=== PATIENT | male | born 1980 | race African-American/Black ===

== ENCOUNTER → 2023-09-08 14:07 | Outpatient (REF) | payer OTHER, SELFPAY ==
[2023-09-08 16:28] LABS: Hepatitis B Surface Antibody Positive
== END ==
LOC: OHS 14:07
PROVIDERS: ATTENDING PHYSICIAN Nurse Practitioner Family
DX: Z23 Encounter for immunization (principal)
CPT/HCPCS: 36415; 86706

== ENCOUNTER 2024-02-10 15:18 | Emergency (ER) | payer SELFPAY ==
[2024-02-10 15:21] VITALS: BP 162/108
--- NOTE | 2024-02-10 15:49 | ED.GENMED ---
History of Present Illness
General
Chief Complaint: Skin Problem
Source: patient
Exam Limitations: none
Time Seen by Provider: 02/10/24 15:40
History of Present Illness
History of Present Illness:
41s male itchy rash on his scalp after using a new hair dye, history of the same requiring p.o. steroids no fevers no drainage no blisters no tongue swelling no shortness of breath not known to be diabetic
Past History
Past History
ED Past Medical History: None
Social History
Tobacco: Non-smoker
Alcohol: None
Drug: None
Living: with family
Employment: Employed
Review of Systems
Review of Systems
All Other Systems: Not applicable
Constitutional: Denies fever
EENT: Reports no symptoms; Denies mouth swelling
Respiratory: Denies cough or trouble breathing
Skin: Reports itching
Phy Exam
Physical Exam
Physical Exam:
Physical Exam
General: no apparent distress, not acutely ill
Neck: No tongue swelling normal voice no drooling
Lungs: no acute respiratory distress.
Neuro: alert and oriented. no focal neurological deficits
Skin: Minimal erythema around the scalp no blisters no hives
Psychiatric: well kept. interactive and cooperative
Extremities: no edema.
Course
Orders/Labs/Results
Orders:
Orders
02/10/24 15:45
Diphenhydramine [Benadryl] 25 mg PO NOW STA
Prednisone [Deltasone] 50 mg PO NOW STA
Vital Signs
Initial and Last Documented VS:
Initial Vital Signs
Temp Pulse BP Pulse Ox
98.2 F 100 162/108 99
02/10/24 15:21 02/10/24 15:21 02/10/24 15:21 02/10/24 15:21
Last Documented Vital Signs
Temp Pulse BP Pulse Ox
98.2 F 100 162/108 99
02/10/24 15:21 02/10/24 15:21 02/10/24 15:21 02/10/24 15:21
MDM/Problems Addressed
Differential Diagnosis Includes:
Contact dermatitis cellulitis allergic
MDM/Problems Addressed:
Itchy scalp
Chronic conditions affecting care:
Prior episode of itchy scalp
*Pulse Oximetry
Patient hypoxic: no
*Critical Care Note
Total Time (30-74mins, 75-104mins- exclusive of procedures): Not Applicable
Update Note
Update Note:
Reviewed with patient encouraged not to use his hair dye any longer, will give a short taper of steroids, Benadryl
ED Attending Note
-
Portions of this chart may have been created with voice recognition software.� Occasional wrong word or��sound alike� substitutions may have occurred due to the inherent limitations of voice recognition software.
Discharge Plan
Departure
Patient Disposition: Home (Routine Discharge)
Date of Disposition: 02/10/24
Time of Disposition: 15:46
Patient with high blood pressure during this ER visit?: No
Condition: Good
Discharge Problem:
Dermatitis
Instructions: Dermatitis ( Contact )
Prescriptions:
New
prednisone 10 mg tablet
10 mg PO DIRECTED Qty: 30 0RF
Rx Instructions:
4 pills a day for 2 days, 3 pills a day for 3 days, 2 pills a day for 3 days, 1 pill a day for 3 days
diphenhydramine HCl [Benadryl] 25 mg capsule
25 mg PO TID PRN (Reason: itching) Qty: 20 0RF
Interventions
Interventions:
*Risk Screen - Suicide Last Done: 02/10/24 15:26
*General Assessment Last Done: 02/10/24 15:43
*Neglect/Abuse Screening Last Done: 02/10/24 15:43
*ED COVID-19 Vaccine History Last Done: 02/10/24 15:43
Discharge Date and Time
Print Language: SERBIAN
[2024-02-10] MEDS: BENADRYL 25 MG PO (15:59)
[2024-02-10] MEDS: DELTASONE 50 MG PO (15:59)
== END 2024-02-10 16:03 | disposition home or self-care (01) ==
LOC: EMR 15:18
PROVIDERS: EMERGENCY PHYSICIAN Emergency Medicine
DX: L30.9 Dermatitis, unspecified (principal)
CPT/HCPCS: 99282